=== PATIENT | male | born 1955 | race Caucasian/White ===

== ENCOUNTER 2018-07-31 06:21 | Emergency (ER) | payer OTHER ==
--- NOTE | 2018-07-31 06:35 | EDPHY ---
H & P <Mark Brooks - Last Filed: 07/31/18 10:04> Stated Complaint: POSS KIDNEY STONE, R FLANK PAIN - Personal History Current Tetanus/Diphtheria Vaccine: Yes Current Tetanus Diphtheria and Acellular Pertussis (TDAP): Yes - Medical/Surgical History Hx Asthma: No Hx Chronic Respiratory Disease: No Hx Diabetes: No Hx Cardiac Disease: No Hx Renal Disease: No Hx Cirrhosis: No Hx Alcoholism: No Hx HIV/AIDS: No Hx Splenectomy or Spleen Trauma: No Other PMH: L hip replacement, Femur fracture, Clavicle fracture. KIDNEY STONES - Social History Smoking Status: Never smoked <Javier Bustos - Last Filed: 07/31/18 21:29> Time Seen by Provider: 07/31/18 06:34 HPI/ROS: Chief Complaint: Severe abdominal pain HPI: 63-year-old male complains of severe right flank pain radiating to the right lower quadrant with history of kidney stone. States it started on about 4 days ago came and went and then came back severely tonight at 1 in the morning. Pain persisted so he came to the emergency department. The pain is a little bit better upon my evaluation. He also has dysuria and frequency along with a pressure feeling. No alleviating or exacerbating factors. Feels just like a kidney stone he had in 2016. PMH: Renal colic with bilateral kidney stones seen on CT scan in 2016. Social History: Tobacco, Drugs, Alcohol: Family History: ROS: Neuro: No headache Constitutional: No Fever, No dizziness ENT: No runny nose, No sore throat Cardiac: No Chest Pain Pulmonary: No Shortness of Breath GI: + abdominal Pain Skin: No rash Heme: No easy bruising : No urinary problems Eyes: No vision problems Musculoskeletal: No neck pain, + right sided back pain Complete Review of systems negative except as noted above Physical Exam: General: Alert in mild distress from pain, no respiratory distress Eyes: no icterus or pallor ENT: Mouth: Mucus membranes moist Lungs CTA bilaterally, no respiratory distress Cardiac: Normal pulses, normal rate, normal rhythm, normal heart sounds GI: Abd Soft, non tender, no distention, no pulsatile mass or bruit Back: Normal inspection, nml ROM, No CVAT, no vertebral tenderness Extremities: No swelling, nml ROM Skin: Warm, pink and dry, no rash, normal turgor Neuro: A&Ox3, MAEE, Nml Speech Reevaluations, MDM, and data interpretation Data Interpretation Reviewed prior records - [facility].Reviewed visit from 2016 revealed bilateral renal stones along with an obstructing ureteral stone. US Independently viewed by me ED Course Initial Eval: Pt greeted and advised about plan for care. Reevaluation On re-evaluation after meds patient feels much better. He would be comfortable going home assuming there is no infection or obstruction. Reevaluation 2 After US back, discussed findings and need for CT to determine if needs intervention due to ruptured calyx. s/o to Dr. Brooks pending CT results, likely dc with close follow up. Medical Decision Making Differential Diagnosis and MDM: Acute severe right flank pain radiating to the groin and colicky in nature concerning for differential diagnosis including vascular catastrophe of the kidney, renal colic, appendicitis, pyelonephritis. Anxiety will check patient's ultrasound to rule out hydronephrosis since he had a CT scan in the past which showed bilateral renal stones and ureteral stone. If no hydronephrosis and no infection patient be stable for outpatient management. His basic metabolic panel white count her unremarkable with no renal failure. Urinalysis does show no signs of infection. Unfortunately US is c/w hydronephrosis and potentially ruptured calyx so will need CT for size and location of stone to determine need for operative intervention in patient with risk factors for complications(ruptured calyx of right kidney (Javier Bustos) Constitutional: Initial Vital Signs Temperature (C) 37.2 C 07/31/18 06:24 Heart Rate 74 07/31/18 06:24 Respiratory Rate 18 07/31/18 06:24 Blood Pressure 142/82 H 07/31/18 06:24 O2 Sat (%) 94 07/31/18 06:24 O2 Delivery Mode Room Air Allergies/Adverse Reactions: Penicillins Allergy (Verified 07/31/18 06:26) Home Medications: Medication Instructions Recorded Hydrocodone/Acetaminophen [[place] 1 each PO Q4-6PRN PRN #14 tablet 07/31/18 5-325 Tablet] Lidocaine [Lidocaine Pain Relief] 1 each TP DAILY #14 adh..patch 07/31/18 Tamsulosin HCl [Flomax 0.4 MG (*)] 0.4 mg PO DAILY #10 cap 05/20/19 Medical Decision Making - Diagnostics Imaging: Discussed imaging studies w/ call center director Radiologist <Mark Brooks - Last Filed: 07/31/18 10:04> <Javier Bustos - Last Filed: 07/31/18 21:29> - Diagnostics Imaging Results: Imaging Impressions Abdomen/Pelvis CT 07/31/18 08:38 Impression: 1. Moderate right hydronephrosis secondary to 5 mm distal right ureteral calculus. 2. Left nephrolithiasis. No obstructing left-sided ureteral calculi. 3. Constipation. Findings discussed with Emergency Department physician, Dr. Mark Brooks, on 2018 at 9:46 a.m. Attention: This CT examination is specifically designed to evaluate patients who are clinically suspected of having acute obstructive uropathy. This examination does not use radiographic contrast, and as such, provides only a limited evaluation of the abdomen, pelvis and retroperitoneum. If there is further clinical suspicion for pathological conditions other than obstructive uropathy, a complete CT evaluation of the abdomen and pelvis utilizing intravenous, oral, and rectal contrast should be considered. Other Provider: Care assumed at 9:[address] reviewed with the patient at 9:30 a.m. Demonstrating right-sided renal colic with hydronephrosis. Called [facility] at [phone]; they asked me to page urology directly. Dr. Dillon pager [phone]; discussed at 937am will see today in office in [place] [facility] Discharge with imaging studies and labs. CT shows 4 x 5 mm right-sided stone with hydronephrosis per Dr. Jenkins. No rupture. Patient is comfortable time of discharge, declines additional pain meds, does not have severe pain. He is comfortable with the plan to follow-up with [place] [facility] today in the office. (Mark Brooks) - Data Points Laboratory Results: Laboratory Results 07/31/18 06:51 07/31/18 06:51 Medications Given: Discontinued Medications Ketorolac Tromethamine (Toradol) 15 mg IVP EDNOW ONE Stop: 07/31/18 06:52 Last Admin: 07/31/18 07:02 Dose: 15 mg Tamsulosin HCl (Flomax) 0.4 mg PO EDNOW ONE Stop: 07/31/18 09:52 Last Admin: 07/31/18 09:54 Dose: 0.4 mg Departure <Mark Brooks S - Last Filed: 07/31/18 10:04> <Javier Bustos - Last Filed: 07/31/18 21:29> - Departure Disposition: Home, Routine, Self-Care Clinical Impression: Renal colic on right side Condition: Good Instructions: Renal Colic (ED) Additional Instructions: go directly to [place] [facility] to see Dr. Dillon now. Referrals: [facility] (ED U,. [Edm Groups for Call Sched] - As per Instructions (Dr. Santana Navarro, go to [place] office now.) Prescriptions: Hydrocodone/Acetaminophen [[place] 5-325 Tablet] 1 each PO Q4-6PRN PRN #14 tablet PRN Reason: Pain, Breakthrough Lidocaine [Lidocaine Pain Relief] 1 each TP DAILY #14 adh..patch Tamsulosin HCl [Flomax 0.4 MG (*)] 0.4 mg PO DAILY #10 cap
[2018-07-31] MEDS ORDERED: KETOROLAC 15 MG/1 ML SDV IVP ONE (06:51)
[2018-07-31 07:12] LABS: PLATELET COUNT 229 10^3/uL (150-400)
[2018-07-31 09:45] VITALS: BP 123/90
[2018-07-31] MEDS ORDERED: TAMSULOSIN HCL 0.4 MG CAP PO ONE (09:51)
== END 2018-07-31 09:56 | disposition home or self-care (01) ==
DX: N23 Unspecified renal colic (principal); N13.2 Hydronephrosis with renal and ureteral calculous obstruction; K59.00 Constipation, unspecified
CPT/HCPCS: 96374; J1885